=== PATIENT | female | born 1995 | race American Indian/Alaskan Native ===

== ENCOUNTER 2022-01-07 18:26 | Inpatient (IN) | payer OTHER ==
[2022-01-07] MEDS ORDERED: ONDANSETRON 4 MG/2 ML INJ IV PRN (20:03)
[2022-01-07] MEDS ORDERED: BUTORPHANOL 2 MG/1 ML INJ IV PRN (20:03)
[2022-01-07] MEDS ORDERED: OXYTOCIN 10 UNIT/1 ML INJ IM PRN (20:03)
[2022-01-07] MEDS ORDERED: TERBUTALINE 1 MG/1 ML INJ SUB-Q PRN (20:03)
[2022-01-07] MEDS ORDERED: LIDOCAINE (2%) 20 MG/1 ML VIAL 20 ML MDV INFILTRATI ONE (20:03)
[2022-01-07] MEDS ORDERED: ACETAMINOPHEN 325 MG TAB PO PRN (20:03)
[2022-01-07] MEDS ORDERED: CARBOPROST TROMETHAMINE 250 MCG/1 ML INJ IM PRN (20:03)
[2022-01-07] MEDS ORDERED: ePHEDrine SULFATE 50 MG/1 ML INJ IV PRN (20:03)
[2022-01-07] MEDS ORDERED: METHYLERGONOVINE MALEATE 0.2 MG/ML VIAL IM PRN (20:03)
[2022-01-07] MEDS ORDERED: MINERAL OIL 30 ML ORAL LIQD PO PRN (20:03)
[2022-01-07] MEDS ORDERED: miSOPROStol 200 MCG TAB PR PRN (20:03)
[2022-01-07] MEDS ORDERED: LOPERAMIDE 2 MG CAP PO PRN (20:03)
--- NOTE | 2022-01-07 20:16 | History and Physical Report ---
History of Present Illness Date of examination: 01/07/22 Chief complaint: lower abd pain since 1000, vag bleeding History of present illness: 26y/o from [place], just moved here yesterday for work. reports EDC 04/02/22 by LMP, states OBGYN in [place] Dr. Janusz Serrano. Reports last visit approx 2wks ago. 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: abnormal PAP smear, cancer, chlamydia, fibroids, gonorrhea, hepatitis B, hepatitis C, herpes, HIV, syphilis, trichomonas Family/Genetic History: none Social history: single, Lives alone - Obstetrical History Expected Date of Delivery: 04/02/22 Actual Gestation: 27 Week(s) 6 Day(s) : 1 Para: 0 Hx # Term Pregnancies: 0 Number of Pregnancies: 0 Spontaneous Abortions: 0 Induced : 0 Number of Living Children: 0 Medications and Allergies Allergies Allergy/AdvReac Type Severity Reaction Status Date / Time shellfish derived AdvReac Swelling Verified 01/07/22 18:59 Active Meds: Active Medications Carboprost Tromethamine (Carboprost Tromethamine 250 Mcg/1 Ml Inj) 250 mcg IM ONCE PRN PRN Reason: Uterine Bleeding Ephedrine Sulfate (Ephedrine Sulfate 50 Mg/1 Ml Inj) 10 mg IV Q2M PRN PRN Reason: Hypotension Oxytocin/Sodium Chloride (Pitocin/Ns 30 Unit/500ml) 30 units in 500 mls @ 4 mls/hr IV TITR WILEY; Protocol Lactated Ringer's (Lactated Ringers) 1,000 mls @ 125 mls/hr IV DIRECT WILEY Oxytocin/Sodium Chloride (Pitocin/Ns 30 Unit/500ml) 30 units in 500 mls @ 40 mls/hr IV TITR WILEY; Protocol Lidocaine (Lidocaine (2%) 20 Mg/1 Ml Vial 20 Ml Mdv) 20 ml INFILTRATI ONCE ONE Stop: 01/07/22 20:04 Loperamide HCl (Loperamide 2 Mg Cap) 2 mg PO ONCE PRN PRN Reason: give with Hemabate Mineral Oil (Mineral Oil 30 Ml Oral Liqd) 30 ml PO QHS PRN PRN Reason: Constipation Oxytocin (Oxytocin 10 Unit/1 Ml Inj) 10 unit IM ONCE PRN PRN Reason: Uterine Bleeding Terbutaline Sulfate (Terbutaline 1 Mg/1 Ml Inj) 0.25 mg SUB-Q ONCE PRN PRN Reason: Hyperstimulation/Hypertonicity Review of Systems All systems: negative - Vital Signs Vital signs: Vital Signs Temp Pulse Resp BP Pulse Ox 98 F 75 16 121/91 100 01/07/22 18:59 01/07/22 18:59 01/07/22 18:59 01/07/22 18:59 01/07/22 18:59 Temp Pulse Resp BP Pulse Ox 98 F 75 16 121/91 100 01/07/22 18:59 01/07/22 18:59 01/07/22 18:59 01/07/22 18:59 01/07/22 18:59 - Physical Exam Breasts: Positive: normal Cardiovascular: Regular rate Lungs: Positive: Normal air movement Abdomen: Positive: normal appearance, soft Genitourinary (Female): Positive: normal external genitalia, normal perenium Vulva: both: normal Vagina: Positive: normal moisture Uterus: Positive: normal size, normal contour Anus/Rectum: Positive: normal perianal skin Extremities: Positive: normal Deep Tendon Reflex Grade: Normal +2 - Obstetrical Uterine Contraction Monitor Mode: Palpation Cervical Dilatation: 1 Cervical Effacement Percentage: 60 station: -2 Uterine Tone Measurement Phase: Resting Uterine Contraction Intensity: Mild Results All other labs normal. Assessment and Plan 26y/o @ 27+6 weeks. Pt reports pain in lower abdomen starting this morning around 1000, the pain has continued to worsen prompting her to seek care this evening. Pt reports + FM this morning. Upon admission to triage, RN was unable to find FHT with EFM. Stat u/s done confirmed no FCA, cephalic presentation. Findings of u/s discussed with patient, she verbalized understanding. She reports all her family and support people at in [place]. Discussed labor process, pain interventions and expectations of vaginal . SVE /-2 midline, + normal bloody show. Abdomen palpated mild-moderate intensity with some tenderness, suspicious for abruption. Pt seems sad but not tearful. Encouraged questions. Admission orders in EMR, along with pre-e labs, profile and UDS. Charge nurse made aware. Dr. Farnsworth also updated. - Patient Problems (1) IUFD at 20 weeks or more of gestation Current Visit: Yes Status: Acute (2) 27 weeks gestation of Current Visit: Yes Status: Acute
[2022-01-07] MEDS ORDERED: OXYTOCIN DRIP 30 UNITS/500 ML BAG IV SCH ×2 (21:00)
[2022-01-07 21:16] LABS: Hematocrit 36.1 % (30.3-42.9); Hemoglobin 11.9 gm/dl (10.1-14.3); Mean Corpuscular HGB Conc 33 % (30-34); Mean Corpuscular Volume 85 fl (79-97); Platelet Count 136 K/mm3 (140-440); Red Blood Count 4.26 M/mm3 (3.65-5.03)
[2022-01-07] MEDS: fentaNYL 100 MCG/2 ML INJ IV PRN ×2 (21:27→23:36)
[2022-01-07 21:33] LABS: Alanine Aminotransferase 18 units/L (7-56); Uric Acid 6.2 mg/dL (3.5-7.6)
[2022-01-07 21:36] LABS: Bacteria,Urine 2+ /HPF (Negative); Bilirubin,Urine NEG (Negative); Blood,Urine LG (Negative); Color,Urine Red (Yellow); Mucus,Urine FEW /HPF; Urobilinogen,Urine < 2.0 mg/dL (<2.0)
[2022-01-07 21:39] LABS: Protein,Urine >500 mg/dL (Negative)
[2022-01-07 21:44] LABS: Hepatitis C Virus Antibody Non-Reactive (NonReactive)
[2022-01-07] MEDS ORDERED: miSOPROStol 200 MCG TAB PO SCH (22:00)
[2022-01-07 22:03] LABS: Amphetamine Screen,Urine Negative; Benzodiazepines Screen,Urine Negative; Cannabinoid Screen,Urine Negative; Cocaine Screen,Urine Negative; Methadone Screen,Urine Negative; Opiate Screen,Urine Negative
[2022-01-07] MEDS ORDERED: LACTATED RINGERS 1,000 ML IV SCH (22:15)
[2022-01-07 22:16] LABS: Band Neutrophils # (Manual) 0.2 K/mm3; Basophils % (Manual) 0 % (0.0-1.8); Eosinophils % (Manual) 0 % (0.0-4.3); Total Cells Counted 100
[2022-01-07 22:17] LABS: Platelet Estimate Consistent w Auto; RBC Morphology Normal; Toxic Granulation 1+
--- NOTE | 2022-01-08 00:59 | Anesthesia Consultation ---
Anesthesia Consult and Med Hx Date of service: 01/08/22 - Airway Anesthetic Teeth Evaluation: Good ROM Head & Neck: Adequate Mental/Hyoid Distance: Adequate Mallampati Class: Class II Intubation Access Assessment: Probably Good - Pulmonary Exam CTA: Yes - Cardiac Exam Cardiac Exam: RRR - Pre-Operative Health Status ASA Pre-Surgery Classification: ASA3 Proposed Anesthetic Plan: Epidural - Pulmonary Hx Asthma: No COPD: No Hx Pneumonia: No - Endocrine Hx End Stage Renal Disease: No - Other Systems Hx Obesity: Yes
--- NOTE | 2022-01-08 01:21 | Progress Note ---
Labor Epidural - Labor Epidural Start Time: 01:09 Stop Time: :14 Performed by:: MI PRYOR Procedure: Patient is requesting epidural for labor pain. H&P, and labs reviewed. Procedure explained, questions answered, consent obtained. Patient in sitting position with blood pressure cuff and pulse ox on and working. Timeout performed immediately before start of procedure. Sterile Chloraprep prep/drape. 3 mL 1% lidocaine skin wheal at L[3]-L[4]. 17-gauge tuohy epidural needle advanced to [id number] with saline at [7] cm. 25-gauge spinal needle advanced until clear, free-flowing CSF. Intrathecal dexmedetomidine [5] mcg administered and needle removed. Epidural catheter advanced to [12] cm, negative aspiration for blood and csf, negative test dose 3 ml 1.5% lidocaine with epinephrine. Sterile sponge and tegaderm applied, followed by tape reinforcement. Patient tolerated procedure well.
[2022-01-08] MEDS ORDERED: miSOPROStol 200 MCG TAB PO SCH (01:30)
[2022-01-08] MEDS ORDERED: ePHEDrine SULFATE 50 MG/1 ML INJ IV PRN (01:56)
[2022-01-08] MEDS ORDERED: NALOXONE 2 MG/2 ML INJ IV PRN (01:56)
[2022-01-08] MEDS ORDERED: fentaNYL-BUPIV 2 MCG/ML-0.125% 200 MCG/100 ML BAG EPIDURAL SCH (02:00)
--- NOTE | 2022-01-08 07:26 | Progress Note ---
Assessment and Plan pt comfortable with epidural, SVE 7/100/0 BBOW. AROM clear fluid. Anticipate . - Patient Problems (1) IUFD at 20 weeks or more of gestation Current Visit: Yes Status: Acute (2) 28 weeks gestation of Current Visit: Yes Status: Acute Subjective - Subjective Date of service: 01/08/22 Principal diagnosis: IUFD @ 28+0 weeks Interval history: 26y/o from [place], just moved here yesterday for work. reports EDC 04/02/22 by LMP, states OBGYN in [place] Dr. Janusz Serrano. Reports last visit approx 2wks ago. Pt denies any surgery hx, medical problems, hx of infections She denies any issues with - she did not see MFM while in [place] Pt denies STIs Denies ETOH/Drugs/Smoking Patient reports: no new complaints Objective - Vital Signs Vital Signs: Vital Signs - 12hr 01/07/22 01/07/22 01/07/22 21:09 21:20 21:26 Temperature 99.1 F Pulse Rate 79 Respiratory 16 Rate Blood Pressure Blood Pressure [Right] O2 Sat by Pulse 94 Oximetry O2 Sat by Pulse 99 Oximetry [ Anterior Bilateral Throughout] 01/07/22 01/07/22 01/07/22 21:31 21:36 21:41 Temperature Pulse Rate 68 66 67 Respiratory Rate Blood Pressure Blood Pressure [Right] O2 Sat by Pulse 99 100 98 Oximetry O2 Sat by Pulse Oximetry [ Anterior Bilateral Throughout] 01/07/22 01/07/22 01/07/22 21:46 21:51 21:56 Temperature Pulse Rate 68 73 70 Respiratory Rate Blood Pressure Blood Pressure [Right] O2 Sat by Pulse 100 100 100 Oximetry O2 Sat by Pulse Oximetry [ Anterior Bilateral Throughout] 01/07/22 01/07/22 01/07/22 22:01 22:06 22:11 Temperature Pulse Rate 73 71 74 Respiratory Rate Blood Pressure Blood Pressure [Right] O2 Sat by Pulse 100 100 100 Oximetry O2 Sat by Pulse Oximetry [ Anterior Bilateral Throughout] 01/07/22 01/07/22 01/07/22 22:16 22:21 22:26 Temperature Pulse Rate 71 69 76 Respiratory Rate Blood Pressure Blood Pressure [Right] O2 Sat by Pulse 100 100 100 Oximetry O2 Sat by Pulse Oximetry [ Anterior Bilateral Throughout] 01/07/22 01/07/22 01/07/22 22:31 22:36 22:41 Temperature Pulse Rate 76 75 77 Respiratory Rate Blood Pressure Blood Pressure [Right] O2 Sat by Pulse 100 100 100 Oximetry O2 Sat by Pulse Oximetry [ Anterior Bilateral Throughout] 01/07/22 01/07/22 01/07/22 22:46 22:51 22:56 Temperature Pulse Rate 71 76 69 Respiratory Rate Blood Pressure Blood Pressure [Right] O2 Sat by Pulse 100 100 100 Oximetry O2 Sat by Pulse Oximetry [ Anterior Bilateral Throughout] 01/07/22 01/07/22 01/07/22 23:01 23:06 23:11 Temperature Pulse Rate 77 66 77 Respiratory Rate Blood Pressure Blood Pressure [Right] O2 Sat by Pulse 100 100 100 Oximetry O2 Sat by Pulse Oximetry [ Anterior Bilateral Throughout] 01/07/22 01/07/22 01/07/22 23:16 23:21 23:26 Temperature Pulse Rate 75 81 73 Respiratory Rate Blood Pressure Blood Pressure [Right] O2 Sat by Pulse 100 100 100 Oximetry O2 Sat by Pulse Oximetry [ Anterior Bilateral Throughout] 01/07/22 01/07/22 01/07/22 23:31 23:36 23:41 Temperature Pulse Rate 82 82 77 Respiratory Rate Blood Pressure Blood Pressure [Right] O2 Sat by Pulse 100 100 97 Oximetry O2 Sat by Pulse Oximetry [ Anterior Bilateral Throughout] 01/07/22 01/07/22 01/07/22 23:46 23:51 23:56 Temperature Pulse Rate 76 76 78 Respiratory Rate Blood Pressure Blood Pressure [Right] O2 Sat by Pulse 99 100 100 Oximetry O2 Sat by Pulse Oximetry [ Anterior Bilateral Throughout] 01/08/22 01/08/22 01/08/22 00:01 00:06 00:11 Temperature Pulse Rate 84 81 71 Respiratory Rate Blood Pressure Blood Pressure [Right] O2 Sat by Pulse 100 100 100 Oximetry O2 Sat by Pulse Oximetry [ Anterior Bilateral Throughout] 01/08/22 01/08/22 01/08/22 00:16 00:21 00:26 Temperature Pulse Rate 80 77 77 Respiratory Rate Blood Pressure Blood Pressure [Right] O2 Sat by Pulse 100 100 100 Oximetry O2 Sat by Pulse Oximetry [ Anterior Bilateral Throughout] 01/08/22 01/08/22 01/08/22 00:28 00:31 00:36 Temperature Pulse Rate 90 79 79 Respiratory Rate Blood Pressure Blood Pressure [Right] O2 Sat by Pulse 83 L 100 100 Oximetry O2 Sat by Pulse Oximetry [ Anterior Bilateral Throughout] 01/08/22 01/08/22 01/08/22 00:55 00:56 01:00 Temperature 99.8 F H Pulse Rate 83 108 H 87 Respiratory 18 Rate Blood Pressure Blood Pressure 131/68 [Right] O2 Sat by Pulse 100 93 100 Oximetry O2 Sat by Pulse Oximetry [ Anterior Bilateral Throughout] 01/08/22 01/08/22 01/08/22 01:01 01:05 01:10 Temperature Pulse Rate 80 85 81 Respiratory Rate Blood Pressure 131/68 Blood Pressure [Right] O2 Sat by Pulse 100 100 Oximetry O2 Sat by Pulse Oximetry [ Anterior Bilateral Throughout] 01/08/22 01/08/22 01/08/22 01:14 01:15 01:17 Temperature Pulse Rate 80 76 84 Respiratory Rate Blood Pressure 126/70 124/58 Blood Pressure [Right] O2 Sat by Pulse 100 Oximetry O2 Sat by Pulse Oximetry [ Anterior Bilateral Throughout] 01/08/22 01/08/22 01/08/22 01:18 01:20 01:23 Temperature Pulse Rate 110 H 112 H 98 H Respiratory Rate Blood Pressure 104/55 Blood Pressure [Right] O2 Sat by Pulse 87 100 Oximetry O2 Sat by Pulse Oximetry [ Anterior Bilateral Throughout] 01/08/22 01/08/22 01/08/22 01:24 01:25 01:26 Temperature Pulse Rate 96 H 97 H 95 H Respiratory Rate Blood Pressure 95/52 93/52 Blood Pressure [Right] O2 Sat by Pulse 100 Oximetry O2 Sat by Pulse Oximetry [ Anterior Bilateral Throughout] 01/08/22 01/08/22 01/08/22 01:28 01:30 01:35 Temperature Pulse Rate 93 H 96 H 83 Respiratory Rate Blood Pressure 94/50 105/53 Blood Pressure [Right] O2 Sat by Pulse 100 100 Oximetry O2 Sat by Pulse Oximetry [ Anterior Bilateral Throughout] 01/08/22 01/08/22 01/08/22 01:37 01:38 01:40 Temperature Pulse Rate 82 77 88 Respiratory Rate Blood Pressure 98/52 91/50 Blood Pressure [Right] O2 Sat by Pulse 100 Oximetry O2 Sat by Pulse Oximetry [ Anterior Bilateral Throughout] 01/08/22 01/08/22 01/08/22 01:41 01:45 01:50 Temperature Pulse Rate 94 H 90 92 H Respiratory Rate Blood Pressure Blood Pressure [Right] O2 Sat by Pulse 92 100 100 Oximetry O2 Sat by Pulse Oximetry [ Anterior Bilateral Throughout] 01/08/22 01/08/22 01/08/22 01:53 01:55 01:57 Temperature Pulse Rate 89 87 85 Respiratory Rate Blood Pressure 114/67 115/64 Blood Pressure [Right] O2 Sat by Pulse 100 Oximetry O2 Sat by Pulse Oximetry [ Anterior Bilateral Throughout] 01/08/22 01/08/22 01/08/22 02:00 02:02 02:05 Temperature Pulse Rate 90 88 89 Respiratory Rate Blood Pressure 115/66 Blood Pressure [Right] O2 Sat by Pulse 100 100 Oximetry O2 Sat by Pulse Oximetry [ Anterior Bilateral Throughout] 01/08/22 01/08/22 01/08/22 02:08 02:10 02:15 Temperature Pulse Rate 96 H 88 81 Respiratory Rate Blood Pressure 118/76 Blood Pressure [Right] O2 Sat by Pulse 100 100 Oximetry O2 Sat by Pulse Oximetry [ Anterior Bilateral Throughout] 01/08/22 01/08/22 01/08/22 02:20 02:25 02:26 Temperature Pulse Rate 85 86 90 Respiratory Rate Blood Pressure 113/64 Blood Pressure [Right] O2 Sat by Pulse 100 100 Oximetry O2 Sat by Pulse Oximetry [ Anterior Bilateral Throughout] 01/08/22 01/08/22 01/08/22 02:30 02:35 02:40 Temperature Pulse Rate 87 79 80 Respiratory Rate Blood Pressure Blood Pressure [Right] O2 Sat by Pulse 100 99 100 Oximetry O2 Sat by Pulse Oximetry [ Anterior Bilateral Throughout] 01/08/22 01/08/22 01/08/22 02:41 02:45 02:50 Temperature Pulse Rate 82 88 85 Respiratory Rate Blood Pressure 126/68 Blood Pressure [Right] O2 Sat by Pulse 100 99 Oximetry O2 Sat by Pulse Oximetry [ Anterior Bilateral Throughout] 01/08/22 01/08/22 01/08/22 02:55 03:00 03:05 Temperature Pulse Rate 86 85 84 Respiratory Rate Blood Pressure 116/69 Blood Pressure [Right] O2 Sat by Pulse 100 99 100 Oximetry O2 Sat by Pulse Oximetry [ Anterior Bilateral Throughout] 01/08/22 01/08/22 01/08/22 03:10 03:11 03:15 Temperature Pulse Rate 82 84 86 Respiratory Rate Blood Pressure 119/63 Blood Pressure [Right] O2 Sat by Pulse 100 99 Oximetry O2 Sat by Pulse Oximetry [ Anterior Bilateral Throughout] 01/08/22 01/08/22 01/08/22 03:20 03:25 03:27 Temperature Pulse Rate 98 H 108 H 100 H Respiratory Rate Blood Pressure 103/60 Blood Pressure [Right] O2 Sat by Pulse 100 99 Oximetry O2 Sat by Pulse Oximetry [ Anterior Bilateral Throughout] 01/08/22 01/08/22 01/08/22 03:30 03:35 03:40 Temperature Pulse Rate 104 H 96 H 99 H Respiratory Rate Blood Pressure Blood Pressure [Right] O2 Sat by Pulse 98 99 98 Oximetry O2 Sat by Pulse Oximetry [ Anterior Bilateral Throughout] 01/08/22 01/08/22 01/08/22 03:42 03:45 03:50 Temperature Pulse Rate 101 H 98 H 102 H Respiratory Rate Blood Pressure 104/58 Blood Pressure [Right] O2 Sat by Pulse 98 98 Oximetry O2 Sat by Pulse Oximetry [ Anterior Bilateral Throughout] 01/08/22 01/08/22 01/08/22 03:55 03:56 04:00 Temperature Pulse Rate 104 H 90 110 H Respiratory Rate Blood Pressure 105/59 Blood Pressure [Right] O2 Sat by Pulse 98 98 Oximetry O2 Sat by Pulse Oximetry [ Anterior Bilateral Throughout] 01/08/22 01/08/22 01/08/22 04:05 04:10 04:11 Temperature Pulse Rate 111 H 99 H 88 Respiratory Rate Blood Pressure 104/57 Blood Pressure [Right] O2 Sat by Pulse 98 99 Oximetry O2 Sat by Pulse Oximetry [ Anterior Bilateral Throughout] 01/08/22 01/08/22 01/08/22 04:15 04:20 04:25 Temperature Pulse Rate 108 H 99 H 91 H Respiratory Rate Blood Pressure Blood Pressure [Right] O2 Sat by Pulse 99 100 99 Oximetry O2 Sat by Pulse Oximetry [ Anterior Bilateral Throughout] 01/08/22 01/08/22 01/08/22 04:27 04:30 04:35 Temperature Pulse Rate 100 H 97 H 109 H Respiratory Rate Blood Pressure 103/57 Blood Pressure [Right] O2 Sat by Pulse 100 99 Oximetry O2 Sat by Pulse Oximetry [ Anterior Bilateral Throughout] 01/08/22 01/08/22 01/08/22 04:37 04:40 04:45 Temperature Pulse Rate 80 103 H 96 H Respiratory Rate Blood Pressure 99/57 Blood Pressure [Right] O2 Sat by Pulse 91 99 99 Oximetry O2 Sat by Pulse Oximetry [ Anterior Bilateral Throughout] 01/08/22 01/08/22 01/08/22 04:50 04:55 04:57 Temperature Pulse Rate 97 H 89 94 H Respiratory Rate Blood Pressure 105/59 Blood Pressure [Right] O2 Sat by Pulse 98 98 Oximetry O2 Sat by Pulse Oximetry [ Anterior Bilateral Throughout] 01/08/22 01/08/22 01/08/22 05:00 05:05 05:10 Temperature Pulse Rate 101 H 110 H 104 H Respiratory Rate Blood Pressure Blood Pressure [Right] O2 Sat by Pulse 99 98 100 Oximetry O2 Sat by Pulse Oximetry [ Anterior Bilateral Throughout] 01/08/22 01/08/22 01/08/22 05:12 05:15 05:20 Temperature Pulse Rate 116 H 92 H 96 H Respiratory Rate Blood Pressure 102/76 Blood Pressure [Right] O2 Sat by Pulse 99 98 Oximetry O2 Sat by Pulse Oximetry [ Anterior Bilateral Throughout] 01/08/22 01/08/22 01/08/22 05:25 05:27 05:30 Temperature Pulse Rate 104 H 103 H 102 H Respiratory Rate Blood Pressure 108/57 Blood Pressure [Right] O2 Sat by Pulse 97 99 Oximetry O2 Sat by Pulse Oximetry [ Anterior Bilateral Throughout] 01/08/22 01/08/22 01/08/22 05:35 05:40 05:41 Temperature Pulse Rate 104 H 110 H 101 H Respiratory Rate Blood Pressure 106/56 Blood Pressure [Right] O2 Sat by Pulse 99 98 Oximetry O2 Sat by Pulse Oximetry [ Anterior Bilateral Throughout] 01/08/22 01/08/22 01/08/22 05:45 05:50 05:55 Temperature Pulse Rate 90 107 H 95 H Respiratory Rate Blood Pressure 100/55 Blood Pressure [Right] O2 Sat by Pulse 99 98 98 Oximetry O2 Sat by Pulse Oximetry [ Anterior Bilateral Throughout] 01/08/22 01/08/22 01/08/22 06:00 06:05 06:10 Temperature Pulse Rate 115 H 108 H 107 H Respiratory Rate Blood Pressure Blood Pressure [Right] O2 Sat by Pulse 98 98 97 Oximetry O2 Sat by Pulse Oximetry [ Anterior Bilateral Throughout] 01/08/22 01/08/22 01/08/22 06:15 06:20 06:25 Temperature Pulse Rate 88 100 H 93 H Respiratory Rate Blood Pressure Blood Pressure [Right] O2 Sat by Pulse 98 96 97 Oximetry O2 Sat by Pulse Oximetry [ Anterior Bilateral Throughout] 01/08/22 01/08/22 01/08/22 06:26 06:30 06:35 Temperature Pulse Rate 100 H 101 H 98 H Respiratory Rate Blood Pressure 97/53 Blood Pressure [Right] O2 Sat by Pulse 98 98 Oximetry O2 Sat by Pulse Oximetry [ Anterior Bilateral Throughout] 01/08/22 01/08/22 01/08/22 06:40 06:45 06:50 Temperature Pulse Rate 89 103 H 109 H Respiratory Rate Blood Pressure 95/54 Blood Pressure [Right] O2 Sat by Pulse 98 98 98 Oximetry O2 Sat by Pulse Oximetry [ Anterior Bilateral Throughout] 01/08/22 01/08/22 01/08/22 06:55 06:57 07:00 Temperature Pulse Rate 99 H 98 H 97 H Respiratory Rate Blood Pressure 88/50 Blood Pressure [Right] O2 Sat by Pulse 98 98 Oximetry O2 Sat by Pulse Oximetry [ Anterior Bilateral Throughout] 01/08/22 01/08/22 07:05 07:10 Temperature Pulse Rate 101 H 122 H Respiratory Rate Blood Pressure Blood Pressure [Right] O2 Sat by Pulse 96 100 Oximetry O2 Sat by Pulse Oximetry [ Anterior Bilateral Throughout] - Exam Cardiovascular: Regular rate Lungs: Normal air movement Abdomen: Present: normal appearance, soft Vulva: both: normal Uterus: Present: normal Uterine Contraction Monitor Mode: External Cervical Dilatation: 7 Cervical Effacement Percentage: 100 station: +1 Uterine Tone Measurement Phase: Contraction Uterine Contraction Intensity: Strong/Firm Extremities: normal - Labs Labs: Abnormal Labs 01/07/22 01/07/22 01/07/22 Unknown Unknown Unknown WBC 18.4 H Plt Count 136 L Seg Neuts % (Manual) 91.0 H Lymphocytes % (Manual) 5.0 L Seg Neutrophils # Man 16.7 H Lymphocytes # (Manual) 0.9 L Lactate Dehydrogenase 413 H Urine pH 8.0 H Urine WBC (Auto) 130.0 H U Epithel Cells (Auto) 122.0 H Laboratory Results - last 24 hr 01/07/22 01/07/22 01/07/22 Unknown Unknown Unknown WBC 18.4 H RBC 4.26 Hgb 11.9 Hct 36.1 MCV 85 MCH 28 MCHC 33 RDW 14.0 Plt Count 136 L Add Manual Diff Complete Total Counted 100 Seg Neutrophils % Casing Machine Operator Seg Neuts % (Manual) 91.0 H Band Neutrophils % 1.0 Lymphocytes % (Manual) 5.0 L Reactive Lymphs % (Man) 0 Monocytes % (Manual) 2.0 Eosinophils % (Manual) 0 Basophils % (Manual) 0 Metamyelocytes % 1.0 Myelocytes % 0 Promyelocytes % 0 Blast Cells % 0 Nucleated RBC % Not Reportable Seg Neutrophils # Man 16.7 H Band Neutrophils # 0.2 Lymphocytes # (Manual) 0.9 L Abs React Lymphs (Man) 0.0 Monocytes # (Manual) 0.4 Eosinophils # (Manual) 0.0 Basophils # (Manual) 0.0 Metamyelocytes # 0.2 Myelocytes # 0.0 Promyelocytes # 0.0 Blast Cells # 0.0 WBC Morphology Not Reportable Hypersegmented Neuts Not Reportable Hyposegmented Neuts Not Reportable Hypogranular Neuts Not Reportable Smudge Cells Not Reportable Toxic Granulation 1+ Toxic Vacuolation Not Reportable Dohle Bodies Not Reportable Pelger-Huet Anomaly Not Reportable Elicia Rods Not Reportable Platelet Estimate Consistent w auto Clumped Platelets Not Reportable Plt Clumps, EDTA Not Reportable Large Platelets Not Reportable Giant Platelets Not Reportable Platelet Satelliting Not Reportable Plt Morphology Comment Not Reportable RBC Morphology Normal Dimorphic RBCs Not Reportable Polychromasia Not Reportable Hypochromasia Not Reportable Poikilocytosis Not Reportable Anisocytosis Not Reportable Microcytosis Not Reportable Macrocytosis Not Reportable Spherocytes Not Reportable Pappenheimer Bodies Not Reportable Sickle Cells Not Reportable Target Cells Not Reportable Tear Drop Cells Not Reportable Ovalocytes Not Reportable Helmet Cells Not Reportable [place] Bodies Not Reportable [place] Rings Not Reportable Deniz Cells Not Reportable Bite Cells Not Reportable Crenated Cell Not Reportable Elliptocytes Not Reportable Acanthocytes (Spur) Not Reportable Rouleaux Not Reportable Hemoglobin C Crystals Not Reportable Schistocytes Not Reportable Malaria parasites Not Reportable Hang Bodies Not Reportable Hem Pathologist Commnt No Creatinine Estimated GFR Uric Acid AST ALT Lactate Dehydrogenase Urine Color Urine Turbidity Urine pH Ur Specific Pax Urine Protein Urine Glucose (UA) Urine Ketones Urine Blood Urine Nitrite Urine Bilirubin Urine Urobilinogen Ur Leukocyte Esterase Urine WBC (Auto) Urine RBC (Auto) U Epithel Cells (Auto) Urine Bacteria (Auto) Urine Mucus Urine Opiates Screen Negative Urine Methadone Screen Negative Ur Barbiturates Screen Negative Ur Phencyclidine Scrn Negative Ur Amphetamines Screen Negative U Benzodiazepines Scrn Negative Urine Cocaine Screen Negative U Marijuana (THC) Screen Negative Drugs of Abuse Note Disclamer Syphilis IgG/IgM Ab Hep Bs Antigen Hepatitis C Antibody Non-reactive HIV 1&2 Antibody Rapid HIV P24 Antigen Rubella IgG Antibody Immune Blood Type Antibody Screen 01/07/22 01/07/22 01/07/22 Unknown Unknown Unknown WBC RBC Hgb Hct MCV MCH MCHC RDW Plt Count Add Manual Diff Total Counted Seg Neutrophils % Seg Neuts % (Manual) Band Neutrophils % Lymphocytes % (Manual) Reactive Lymphs % (Man) Monocytes % (Manual) Eosinophils % (Manual) Basophils % (Manual) Metamyelocytes % Myelocytes % Promyelocytes % Blast Cells % Nucleated RBC % Seg Neutrophils # Man Band Neutrophils # Lymphocytes # (Manual) Abs React Lymphs (Man) Monocytes # (Manual) Eosinophils # (Manual) Basophils # (Manual) Metamyelocytes # Myelocytes # Promyelocytes # Blast Cells # WBC Morphology Hypersegmented Neuts Hyposegmented Neuts Hypogranular Neuts Smudge Cells Toxic Granulation Toxic Vacuolation Dohle Bodies Pelger-Huet Anomaly Elicia Rods Platelet Estimate Clumped Platelets Plt Clumps, EDTA Large Platelets Giant Platelets Platelet Satelliting Plt Morphology Comment RBC Morphology Dimorphic RBCs Polychromasia Hypochromasia Poikilocytosis Anisocytosis Microcytosis Macrocytosis Spherocytes Pappenheimer Bodies Sickle Cells Target Cells Tear Drop Cells Ovalocytes Helmet Cells [place] Bodies [place] Rings [place] Cells Bite Cells Crenated Cell Elliptocytes Acanthocytes (Spur) Rouleaux Hemoglobin C Crystals Schistocytes Malaria parasites Hang Bodies Hem Pathologist Commnt Creatinine 0.6 Estimated GFR > 60 Uric Acid 6.2 AST 33 ALT 18 Lactate Dehydrogenase 413 H Urine Color Urine Turbidity Urine pH Ur Specific Pax Urine Protein Urine Glucose (UA) Urine Ketones Urine Blood Urine Nitrite Urine Bilirubin Urine Urobilinogen Ur Leukocyte Esterase Urine WBC (Auto) Urine RBC (Auto) U Epithel Cells (Auto) Urine Bacteria (Auto) Urine Mucus Urine Opiates Screen Urine Methadone Screen Ur Barbiturates Screen Ur Phencyclidine Scrn Ur Amphetamines Screen U Benzodiazepines Scrn Urine Cocaine Screen U Marijuana (THC) Screen Drugs of Abuse Note Syphilis IgG/IgM Ab Hep Bs Antigen Non-reactive Hepatitis C Antibody HIV 1&2 Antibody Rapid HIV P24 Antigen Rubella IgG Antibody Blood Type O POSITIVE Antibody Screen Negative 01/07/22 01/07/22 01/07/22 Unknown Unknown Unknown WBC RBC Hgb Hct MCV MCH MCHC RDW Plt Count Add Manual Diff Total Counted Seg Neutrophils % Seg Neuts % (Manual) Band Neutrophils % Lymphocytes % (Manual) Reactive Lymphs % (Man) Monocytes % (Manual) Eosinophils % (Manual) Basophils % (Manual) Metamyelocytes % Myelocytes % Promyelocytes % Blast Cells % Nucleated RBC % Seg Neutrophils # Man Band Neutrophils # Lymphocytes # (Manual) Abs React Lymphs (Man) Monocytes # (Manual) Eosinophils # (Manual) Basophils # (Manual) Metamyelocytes # Myelocytes # Promyelocytes # Blast Cells # WBC Morphology Hypersegmented Neuts Hyposegmented Neuts Hypogranular Neuts Smudge Cells Toxic Granulation Toxic Vacuolation Dohle Bodies Pelger-Huet Anomaly Elicia Rods Platelet Estimate Clumped Platelets Plt Clumps, EDTA Large Platelets Giant Platelets Platelet Satelliting Plt Morphology Comment RBC Morphology Dimorphic RBCs Polychromasia Hypochromasia Poikilocytosis Anisocytosis Microcytosis Macrocytosis Spherocytes Pappenheimer Bodies Sickle Cells Target Cells Tear Drop Cells Ovalocytes Helmet Cells [place] Bodies [place] Rings Deniz Cells Bite Cells Crenated Cell Elliptocytes Acanthocytes (Spur) Rouleaux Hemoglobin C Crystals Schistocytes Malaria parasites Hang Bodies Hem Pathologist Commnt Creatinine Estimated GFR Uric Acid AST ALT Lactate Dehydrogenase Urine Color Red Urine Turbidity Cloudy Urine pH 8.0 H Ur Specific Pax 1.020 Urine Protein >500 Urine Glucose (UA) Neg Urine Ketones 80 Urine Blood Lg Urine Nitrite Neg Urine Bilirubin Neg Urine Urobilinogen < 2.0 Ur Leukocyte Esterase Neg Urine WBC (Auto) 130.0 H Urine RBC (Auto) 147.0 U Epithel Cells (Auto) 122.0 H Urine Bacteria (Auto) 2+ Urine Mucus Few Urine Opiates Screen Urine Methadone Screen Ur Barbiturates Screen Ur Phencyclidine Scrn Ur Amphetamines Screen U Benzodiazepines Scrn Urine Cocaine Screen U Marijuana (THC) Screen Drugs of Abuse Note Syphilis IgG/IgM Ab Nonreactive Hep Bs Antigen Hepatitis C Antibody HIV 1&2 Antibody Rapid Non react HIV P24 Antigen Non react Rubella IgG Antibody Blood Type Antibody Screen
--- NOTE | 2022-01-08 07:54 | Procedure Note ---
OB Delivery Note - Delivery Date of Delivery: 01/08/22 (demised baby boy) Spa Manager/Esthetician: UCHE ALLEN Estimated blood loss: 200cc - Vaginal Delivery presentation: vertex Delivery position: OA Intrapartum events: abruption Delivery induction: misoprostol Delivery augmentation: rupture of membranes, pitocin Delivery monitor: external uterine Route of delivery: Delivery placenta: spontaneous Delivery cord: 3 umbilical vessels Episiotomy: none Delivery laceration: none Anesthesia: epidural Delivery comments: male infant born over intact perineum. cord clamped and cut, infant taken to warmer as patient did not want to hold . Placenta delivered intact and complete with approx 500mls of large clots delivered after placenta. Placenta to pathology. Port wine stained fluid noted with delivery. Fundus firm, scant bleeding. all counts correct. - Infant A at 1 minute: 0 at 5 minutes: 0 Gender: Male
[2022-01-08] MEDS ORDERED: WITCH HAZEL/ GLYCERIN PAD TP PRN (12:00)
[2022-01-08] MEDS ORDERED: ACETAMINOPHEN 325 MG TAB PO PRN (12:00)
[2022-01-08] MEDS ORDERED: PROMETHAZINE 25 MG TAB PO PRN (12:00)
[2022-01-08] MEDS ORDERED: diphenhydrAMINE 25 MG CAP PO PRN (12:00)
[2022-01-08] MEDS ORDERED: ONDANSETRON 4 MG/2 ML INJ IV PRN (12:00)
[2022-01-08] MEDS ORDERED: MAGNESIUM HYDROXIDE (MOM) ORAL LIQD UDC PO PRN (12:00)
[2022-01-08] MEDS: IBUPROFEN 600 MG TAB PO SCH ×2 (12:09→19:41)
--- NOTE | 2022-01-08 17:25 | Post Anesthesia Evaluation ---
- Post Anesthesia Evaluation Patient Participated: Yes Airway Patent: Yes Stable Respiratory Function: Yes Nausea/Vomiting: No Temp > 96.8F: Yes Pain Manageable: Yes Adequeate Hydration: Yes Anesthesia Complications: No Block Receding Appropriately: Yes
[2022-01-08 19:14] LABS: Hematocrit 27.9 % (30.3-42.9); Hemoglobin 9.4 gm/dl (10.1-14.3)
[2022-01-09] MEDS: IBUPROFEN 600 MG TAB PO SCH ×2 (00:35→06:16)
[2022-01-09] MEDS ORDERED: TETANUS,DIPH,PERTUSS(ACELL) VACCINE 0.5 ML SYRINGE IM ONE (06:00)
--- NOTE | 2022-01-09 10:27 | Discharge Summary ---
Providers - Providers Date of Admission: 01/08/22 07:57 Date of discharge: 01/09/22 (pt desires discharge home) Attending physician: JOSÉ ANTONIO QUINTERO Primary care physician: JOSÉ ANTONIO QUINTERO Hospitalization Reason for admission: active labor, IUP - , labor, IUFD Delivery: Episiotomy: none Laceration: none Other procedures: none complications: none Discharge diagnosis: intrapartum demise, delivery [place] baby: male Condition at discharge: Good Disposition: 01 HOME / SELF CARE / HOMELESS - Discharge Diagnoses (1) IUFD at 20 weeks or more of gestation Status: Acute (2) Vaginal delivery Status: Acute Comment: Pt reports ambulating, voiding, and eating without difficulties. Pt denies ssx of preeclampsia. Pt reports desires to discharge home. Discharge precautions and follow up discussed. Dr Macdonald made aware and order received. Pt may discharge home. Plan - Provider Discharge Summary Activity: routine, no sex for 6 weeks, no heavy lifting 4 weeks, no strenuous exercise Diet: routine Instructions: routine Additional instructions: [] Smoking cessation referral if applicable(refer to patient education folder for contact #) [] Refer to [facility] Booklet Call your doctor immediately for: * Fever > 100.5 * Heavy vaginal bleeding ( >1 pad per hour) * Severe persistent headache * Shortness of breath * Reddened, hot, painful area to leg or breast * * Please call [phone] and schedule a visit in 2 weeks. Thank you! - Follow up plan Follow up: JOSÉ ANTONIO QUINTERO MD [Primary Care Provider] - 7 Days
[2022-01-09 18:11] VITALS: BP 126/80
--- NOTE | 2022-01-10 07:05 | Ultrasound Report ---
US OB limited INDICATION: VAG.BLEEDING, UNABLE TO FEEL BABY MOVE - VIABILITY. TECHNIQUE: Limited OB ultrasound COMPARISON: None available. FINDINGS: No heart tones are identified. position is cephalic. Signer Name: Sid Stack MD Signed: 01/10/2022 7:01 AM Workstation Name: [id number]
== END 2022-01-09 17:00 | disposition home or self-care (01) | DRG 805 ==
LOC: TRG 18:26 → APU 18:28 → LD 21:51 → OB 01-08 07:57 → TRG 01-08 07:57 → OB 01-08 11:29
PROVIDERS: ADMIT Obstetrics & Gynecology; ATTEND Obstetrics & Gynecology
PROC: 10E0XZZ Delivery of Products of Conception, External Approach (ICD-10-PCS; principal; 2022-01-08)
PROC: 3E0R3BZ Introduction of Anesthetic Agent into Spinal Canal, Percutaneous Approach (ICD-10-PCS; 2022-01-08)
PROC: 00HU33Z Insertion of Infusion Device into Spinal Canal, Percutaneous Approach (ICD-10-PCS; 2022-01-08)
PROC: 10907ZC Drainage of Amniotic Fluid, Therapeutic from Products of Conception, Via Natural or Artificial Opening (ICD-10-PCS; 2022-01-08)
PROC: 3E033VJ Introduction of Other Hormone into Peripheral Vein, Percutaneous Approach (ICD-10-PCS; 2022-01-08)
PROC: 3E0234Z Introduction of Serum, Toxoid and Vaccine into Muscle, Percutaneous Approach (ICD-10-PCS; 2022-01-09)
DX: O36.4XX0 Maternal care for intrauterine death, not applicable or unspecified (principal); O45.93 Premature separation of placenta, unspecified, third trimester; Z37.1 Single stillbirth; O60.12X0 Preterm labor second trimester with preterm delivery second trimester, not applicable or unspecified; Z20.822 Contact with and (suspected) exposure to COVID-19; Z3A.27 27 weeks gestation of pregnancy; Z91.013 Allergy to seafood; Z23 Encounter for immunization
CPT/HCPCS: 36415; 76815; 80307; 81001; 82565; 83615; 84450; 84460; 84550; 85007; 85014; 85018; 85025; 86592; 86706; 86762; 86803; 86850; 86900; 86901; 87806; 88307; 96360; G0378; J3490; J2590; J3010; J7120; U0003

== ENCOUNTER 2022-05-20 19:46 | Emergency (ER) | payer OTHER ==
[2022-05-20 20:49] VITALS: BP 106/67
[2022-05-21 01:46] LABS: Bilirubin,Urine Negative (Negative); Blood,Urine Large (Negative); Color,Urine Red (Yellow); RBC,Urine > 182.0 /HPF (0.0-6.0); Urobilinogen,Urine < 2.0 mg/dL (<2.0)
== END 2022-05-22 07:07 | disposition home or self-care (01) ==
LOC: ED 19:46
DX: N93.9 Abnormal uterine and vaginal bleeding, unspecified (principal); Z53.21 Procedure and treatment not carried out due to patient leaving prior to being seen by health care provider